=== PATIENT | female | born 1980 | race Two or more races ===

== ENCOUNTER 2020-07-27 16:08 | Inpatient (IN) | payer OTHER ==
[~2020-07-27] VITALS: Ht 165 cm; Wt 82.1 kg
[2020-07-27 16:33] VITALS: BP 123/76
[2020-07-27] MEDS ORDERED: PREN-217 PO (16:37)
[2020-07-27] MEDS ORDERED: FERR-89 PO (17:26)
[2020-07-27] MEDS ORDERED: CALC-1038 PO (17:27)
[2020-07-27] MEDS ORDERED: FentaNYL CITRATE-PF 100 MCG/2 ML VIAL IVP PRN (17:45)
[2020-07-27] MEDS ORDERED: CITRIC ACID/SODIUM CITRATE 30 ML SOLUTION UDCUP PO PRN (17:45)
[2020-07-27] MEDS ORDERED: OXYTOCIN 30 UNITS/LACT RINGERS 500 ML IV ONE (17:45)
[2020-07-27] MEDS ORDERED: METHYLERGONOVINE MALEATE 0.2 MG/ML VIAL IM PRN (17:45)
[2020-07-27] MEDS ORDERED: METOCLOPRAMIDE HCL 5 MG/ML 2 ML VIAL IVP PRN (17:45)
[2020-07-27] MEDS ORDERED: RINGERS SOLUTION,LACTATED 1,000 ML IV PRN (17:45)
[2020-07-27] MEDS ORDERED: LIDOCAINE/PF 1% 30 ML VIAL INJ PRN (17:45)
[2020-07-27] MEDS ORDERED: INFLUENZA VIRUS VACCINE QVS 2020-21 (6MO+)/PF 60 MCG/0.5 ML SYRINGE IM ONE (18:00)
[2020-07-27] MEDS: RINGERS SOLUTION,LACTATED 1,000 ML IV SCH (18:23)
[2020-07-27 18:24] LABS: BASOPHILS % (AUTO) 0.5 % (0.0-2.0); EOSINOPHILS % (AUTO) 0.7 % (1.0-6.0); HEMATOCRIT 37.8 % (36-46); HEMOGLOBIN 12.7 g/dL (12.0-16.0); LYMPHOCYTES # (AUTO) 1.6 K/uL (1.0-4.8); LYMPHOCYTES % (AUTO) 16.7 % (22.0-44.0); MEAN CORPUSCULAR HEMOGLOBIN 30.7 pg (26.0-34.0); MEAN CORPUSCULAR HGB CONC 33.7 G/dL (31.0-37.0); MEAN CORPUSCULAR VOLUME 91 fL (80-100); MONOCYTES # (AUTO) 0.7 K/uL (0.1-1.0); MONOCYTES % (AUTO) 7.5 % (2.0-9.0); NEUTROPHILS % (AUTO) 74.6 % (40.0-70.0); PLATELET COUNT (AUTO)-OB 146 K/uL (150-450); RED BLOOD CELL COUNT(AUTO) 4.15 MIL/uL (4.00-5.20); RED CELL DISTRIBUTION WIDTH 15.7 % (11.5-14.5)
[2020-07-27 19:14] LABS: COVID AG,FIA SOURCE NASOPHARYNGEAL
[2020-07-27] MEDS: OXYGEN THERAPY IH SCH (20:00)
[2020-07-27] MEDS ORDERED: OXYTOCIN 20 UNITS/LACT RINGERS 1,000 ML IV ONE (23:30)
[2020-07-28] MEDS: RINGERS SOLUTION,LACTATED 1,000 ML IV SCH ×3 (00:42→21:14)
[2020-07-28] MEDS ORDERED: AMPICILLIN SODIUM 2 GM/NS 100 ML IV ONE (02:30)
[2020-07-28] MEDS ORDERED: ROPIVACAINE HCL/PF 0.2% 100 ML ED ONE (02:38)
[2020-07-28] MEDS ORDERED: NALBUPHINE HCL 10 MG/ML VIAL IVP PRN (03:00)
[2020-07-28] MEDS ORDERED: ONDANSETRON HCL 4 MG/2 ML VIAL IVP PRN (03:00)
[2020-07-28] MEDS ORDERED: DiphenhydrAMINE HCL 50 MG/ML VIAL IVP PRN (03:00)
[2020-07-28] MEDS: AMPICILLIN SODIUM 1 GM/NS 50 ML IV SCH ×5 (06:51→23:00)
[2020-07-28] MEDS ORDERED: OXYTOCIN 30 UNITS/LACT RINGERS 500 ML IV PRN (09:00)
[2020-07-28] MEDS: ROPIVACAINE HCL/PF 0.2% 100 ML ED PRN ×3 (09:34→22:07)
[2020-07-28] MEDS: OXYGEN THERAPY IH SCH ×2 (20:00→23:19)
[2020-07-29] MEDS ORDERED: ACETAMINOPHEN 325 MG TABLET PO ONE
[2020-07-29] MEDS ORDERED: MISOPROSTOL 100 MCG TABLET ONE (01:16)
[2020-07-29] MEDS ORDERED: MISOPROSTOL 25 MCG TABLET PO ONE (01:30)
[2020-07-29] MEDS ORDERED: RINGERS SOLUTION,LACTATED 1,000 ML IV SCH (01:30)
[2020-07-29] MEDS: RINGERS SOLUTION,LACTATED 1,000 ML IV SCH (01:40)
[2020-07-29] MEDS ORDERED: MEASLES/MUMPS/RUBELLA VACCINE, LIVE 0.5 ML/VIAL SQ ONE (01:45)
[2020-07-29] MEDS ORDERED: GLYCERIN/WITCH HAZEL LEAF 40 PADS JAR TP PRN (01:45)
[2020-07-29] MEDS ORDERED: LANOLIN 7 GM OINTMENT TP PRN (01:45)
[2020-07-29] MEDS ORDERED: BENZOCAINE 20%/MENTHOL 56 GM SPRAY CANISTER TP PRN (01:45)
[2020-07-29] MEDS ORDERED: RINGERS SOLUTION,LACTATED 1,000 ML IV ONE (01:45)
[2020-07-29] MEDS ORDERED: OxyCODONE HCL/ACETAMINOPHEN 5-325 MG TABLET PO PRN ×2 (01:45)
[2020-07-29] MEDS ORDERED: MISOPROSTOL 100 MCG TABLET PO ONE (02:15)
[2020-07-29] MEDS: IBUPROFEN 600 MG TABLET PO PRN ×2 (03:47→17:48)
[2020-07-29] MEDS: OXYGEN THERAPY IH SCH ×2 (08:00→20:00)
[2020-07-29] MEDS: MAGNESIUM HYDROXIDE SUSPENSION 30 ML UDCUP PO SCH ×2 (10:05→21:22)
[2020-07-30] MEDS: IBUPROFEN 600 MG TABLET PO PRN ×2 (00:59→11:02)
[2020-07-30] MEDS ORDERED: IBUP-2070 PO (09:12)
[2020-07-30] MEDS ORDERED: DOCU-275 PO (09:15)
== END 2020-07-30 10:00 | disposition home or self-care (01) | DRG 768 ==
LOC: OBSVTOIN 16:08 → 4S 16:08
PROVIDERS: ADMIT Obstetrics & Gynecology; ATTEND Obstetrics & Gynecology
PROC: 10E0XZZ Delivery of Products of Conception, External Approach (ICD-10-PCS; principal; 2020-07-28)
PROC: 0DQR0ZZ Repair Anal Sphincter, Open Approach (ICD-10-PCS; 2020-07-28)
PROC: 3E0R3BZ Introduction of Anesthetic Agent into Spinal Canal, Percutaneous Approach (ICD-10-PCS; 2020-07-28)
PROC: 00HU33Z Insertion of Infusion Device into Spinal Canal, Percutaneous Approach (ICD-10-PCS; 2020-07-28)
DX: O42.92 Full-term premature rupture of membranes, unspecified as to length of time between rupture and onset of labor (principal); Z37.0 Single live birth; O70.20 Third degree perineal laceration during delivery, unspecified; Z20.828 Contact with and (suspected) exposure to other viral communicable diseases; Z3A.39 39 weeks gestation of pregnancy
CPT/HCPCS: 76811; 86850; 86900; 86901; 87426; 90686; J0290; J2590; J2795; J7120